=== PATIENT | female | born 1940 | race Caucasian/White ===

== ENCOUNTER 2018-02-12 23:44 | Inpatient (IN) | payer OTHER, MEDICAID, MEDICARE ==
[~2018-02-12] VITALS: Ht 170.2 cm; Wt 85.0 kg
[~2018-02-12 23:44] MED LIST: ANAS1 PO; COLA100C3 PO; DEXA0.5T PO; DEXA1TAB PO; DIAZ2TAB PO; ENOX30IN SQ; LEVO75TA3 PO; LOSA25TA PO; OMEP20TA93 PO; OXYC1TAB35 PO; SENN8.6C PO; TRAM50TA PO; VENL75TA PO
[2018-02-13] VITALS (10 sets, daily range): BP systolic 132–149; BP diastolic 66–85; PULSE 75–92; RESP 16–18; TEMP 97.5–98.6; O2SAT 94–97
[2018-02-13] MEDS ORDERED: SODIUM CHLORIDE 0.9% FLUSH 10 ML FLUSH IVF PRN (00:15)
[2018-02-13] MEDS ORDERED: PALB125C (00:23)
[2018-02-13 00:37] LABS: BASOPHIL % 0.5 % (0.0-2.0); EOSINOPHIL # 0.1 TH/MM3 (0-0.4); EOSINOPHIL % 2.1 % (0.0-4.0); HEMATOCRIT 39.2 % (35.0-46.0); HEMOGLOBIN 13.4 GM/DL (11.6-15.3); LYMPH % 43.1 % (9.0-44.0); LYMPHOCYTE # 1.8 TH/MM3 (1.0-4.8); MEAN CELL VOLUME 83.2 FL (80.0-100.0); MEAN CORPUSCULAR HEMOGLOBIN 28.5 PG (27.0-34.0); MEAN CORPUSCULAR HGB CONC 34.2 % (32.0-36.0); MONO % 4.2 % (0.0-8.0); MONOCYTE # 0.2 TH/MM3 (0-0.9); NEUT % 50.1 % (16.0-70.0); PLATELET COUNT 278 TH/MM3 (150-450); RED BLOOD COUNT 4.72 MIL/MM3 (4.00-5.30); RED CELL DISTRIBUTION WIDTH 15.7 % (11.6-17.2); WHITE BLOOD COUNT 4.1 TH/MM3 (4.0-11.0)
--- NOTE | 2018-02-13 00:49 | PD ---
HPI . Right leg weakness Chief Complaint: Neuro Symptoms/ Deficits Time Seen by Provider: 00:09 Travel History International Travel<30 days: No Contact w/Intl Traveler<30days: No Traveled to known affect area: No History of Present Illness HPI This patient presents with chief complaint of right leg weakness. Onset was about 5 or 530 this afternoon. The weakness has persisted causing her to present to the emergency department this evening. She denies headache. She does state that she had an aura. She has a history of migraines. She denies any difficulty with her vision. She denies any previous similar history. Symptoms are mild. PFSH Past Medical History Anxiety: Yes Depression: Yes Cancer: Yes (BREAST AND CERVICAL CA) Cardiovascular Problems: Yes High Cholesterol: Yes Chemotherapy: Yes Diminished Hearing: Yes Hypertension: Yes Immune Disorder: No Neurologic: Yes (PINCHED NERVE) Psychiatric: Yes (PTSD) Reproductive: Yes (LUMPECTOMY L BREAST) Immunizations Current: Yes Radiation Therapy: No Thyroid Disease: Yes Triglycerides - High: Yes Menopausal: Yes : 5 Para: 3 Miscarriage: 2 Ectopic : Yes Past Surgical History Abdominal Surgery: Yes (ABDOMINAL ABSCESS) Cardiac Surgery: No Ear Surgery: No Endocrine Surgery: No Eye Surgery: No Genitourinary Surgery: No Gynecologic Surgery: Yes (HYSTERECTOMY) Hysterectomy: Yes Mastectomy: No (LUMPECTOMY L BREAST) Thoracic Surgery: No Other Surgery: Yes Social History Alcohol Use: No Tobacco Use: No Substance Use: No Allergies-Medications (Allergen,Severity, Reaction): Coded Allergies: cortisone (Unverified Adverse Reaction, Severe, PSYCHOTIC, 02/13/18) Reported Meds & Prescriptions Reported Meds & Active Scripts Active Reported Ibrance (Palbociclib) 125 Mg Capsule Levothyroxine (Levothyroxine Sodium) 75 Mcg Tab 75 Mcg PO DAILY Effexor (Venlafaxine HCl) 75 Mg Tab 75 Mg PO Q12H Losartan (Losartan Potassium) 25 Mg Tab 25 Mg PO DAILY Review of Systems Except as stated in HPI: all other systems reviewed are Neg Physical Exam Narrative GENERAL: Healthy-appearing woman who is in no acute distress. SKIN: warm/dry. Normal color. HEAD: Normocephalic. Atraumatic. EYES: Pupils equal and round. No scleral icterus. No injection or drainage. ENT: No nasal bleeding or discharge. Mucous membranes pink and moist. NECK: Trachea midline. Full range of motion without pain.. CARDIOVASCULAR: Regular rate and rhythm. RESPIRATORY: No accessory muscle use. Clear to auscultation. Breath sounds equal bilaterally. GASTROINTESTINAL: Abdomen soft. Nontender. Bowel sounds present. Nondistended. MUSCULOSKELETAL: No obvious deformities. NEUROLOGICAL: Awake and alert. The patient is able to wrinkle her forehead, close her eyes, smile and protrude her tongue in the midline all without any lateralizing signs. Her muscular strength in her upper extremity seems to be full and equal but there is a subtle right pronator drift. She is able to lift the right leg off the bed and hold it for a period of time comparable to the strength in her left lower extremity. She does have weakness on dorsiflexion of the left foot and the left great toe. Plantar flexion is full and equal. PSYCHIATRIC: Appropriate mood and affect; insight and judgment normal. Data Data Last Documented VS Vital Signs Date Time Temp Pulse Resp B/P (MAP) Pulse Ox O2 Delivery O2 Flow Rate FiO2 02/13/18 00:15 96 Room Air 02/13/18 00:03 97.6 89 16 148/67 (94) Orders Orders Electrocardiogram (02/13/18 00:09) Prothrombin Time / Inr (Pt) (02/13/18:) Act Partial Throm Time (Ptt) (02/13/18:09) Complete Blood Count With Diff (02/13/18 00:09) Basic Metabolic Panel (Bmp) (02/13/18 00:09) Troponin I (02/13/18 00:09) Ct Brain W/O Iv Contrast(Rout) (02/13/18 00:09) Chest, Single Ap (02/13/18 00:09) Ecg Monitoring (02/13/18 00:09) Iv Access Insert/Monitor (02/13/18 00:09) Oximetry (02/13/18 00:09) Blood Glucose (02/13/18 00:09) Sodium Chloride 0.9% Flush (Ns Flush) (02/13/18 00:15) Place In Observation (02/13/18 ) Vital Signs (Adult) Q4H (02/13/18 02:19) Neuro Checks Q4H (02/13/18 02:19) Activity Bed Rest (02/13/18 02:19) Preschool Paraprofessional / Telemetry .CONTINUOUS (02/13/18 02:19) Diet Heart Healthy (02/13/18 Breakfast) Sodium Chloride 0.9% Flush (Ns Flush) (02/13/18 02:30) Sodium Chloride 0.9% Flush (Ns Flush) (02/13/18 09:00) Basic Metabolic Panel (Bmp) (02/14/18 06:00) Complete Blood Count With Diff (02/14/18 06:00) Case Management Consult (02/13/18 02:19) Naloxone Inj (Narcan Inj) (02/13/18 02:30) Echo 2d Comp With Doppler (02/13/18 ) Us Carotid Arteries Comp Bilat (02/13/18 ) Consult Neurology (02/13/18 ) Consult Pt Eval & Treat (02/13/18 02:21) Labs Laboratory Tests Test 02/13/18 00:25 White Blood Count 4.1 TH/MM3 Red Blood Count 4.72 MIL/MM3 Hemoglobin 13.4 GM/DL Hematocrit 39.2 % Mean Corpuscular Volume 83.2 FL Mean Corpuscular Hemoglobin 28.5 PG Mean Corpuscular Hemoglobin Concent 34.2 % Red Cell Distribution Width 15.7 % Platelet Count 278 TH/MM3 Mean Platelet Volume 8.0 FL Neutrophils (%) (Auto) 50.1 % Lymphocytes (%) (Auto) 43.1 % Monocytes (%) (Auto) 4.2 % Eosinophils (%) (Auto) 2.1 % Basophils (%) (Auto) 0.5 % Neutrophils # (Auto) 2.0 TH/MM3 Lymphocytes # (Auto) 1.8 TH/MM3 Monocytes # (Auto) 0.2 TH/MM3 Eosinophils # (Auto) 0.1 TH/MM3 Basophils # (Auto) 0.0 TH/MM3 CBC Comment DIFF FINAL Differential Comment Prothrombin Time 10.0 SEC Prothromb Time International Ratio 1.0 RATIO Activated Partial Thromboplast Time 26.8 SEC Blood Urea Nitrogen 23 MG/DL Creatinine 0.99 MG/DL Random Glucose 155 MG/DL Calcium Level 8.4 MG/DL Sodium Level 141 MEQ/L Potassium Level 3.6 MEQ/L Chloride Level 105 MEQ/L Carbon Dioxide Level 26.1 MEQ/L Anion Gap 10 MEQ/L Estimat Glomerular Filtration Rate 54 ML/MIN Troponin I LESS THAN 0.02 NG/ML MDM Medical Decision Making Medical Screen Exam Complete: Yes Emergency Medical Condition: Yes Interpretation(s) EKG shows a normal sinus rhythm with no ST segment elevation or depression. Differential Diagnosis Differential diagnosis includes but is not limited to TIA, CVA, brain tumor, migraine, anxiety Narrative Course This patient presents with strokelike symptoms which started 7+ hours prior to presentation. Stroke workup is in process. CBC & BMP Diagram 02/13/18 00:25 Calcium Level 8.4 L trop < 0.02 Coags are normal Last Impressions Head CT 02/13/188 Signed Impressions: Service Date/Time: Tuesday, February 13, 2018 00:58 - CONCLUSION: 1. Chronic small vessel ischemic changes again noted and mild atrophy. 2. No acute hemorrhage, mass or infarction. Bronson Stallings MD Chest X-Ray 02/13/188 Signed Impressions: Service Date/Time: Tuesday, February 13, 2018 00:31 - CONCLUSION: No acute disease. Bronson Stallings MD Physician Communication Physician Communication Dr. Serrano Diagnosis Primary Impression: Stroke Qualified Codes: I63.9 - Cerebral infarction, unspecified Admitting Information Admitting Physician Requests: Admit Condition: Stable July Tristan MD Feb 13, 2018 00:49
--- NOTE | 2018-02-13 00:52 | RADRPT ---
EXAM DATE/TIME: 02/13/2018 00:31 [facility] COMPARISON: CHEST SINGLE AP, August 16, 2016, 14:35. INDICATIONS : Weakness. Syncope. MEDICAL HISTORY : Cardiovascular disease. Spinal stenosis. SURGICAL HISTORY : CABG. Fusion, cervical. ENCOUNTER: Initial ACUITY: 1 day PAIN SCORE: 6/10 LOCATION: Bilateral chest FINDINGS: A single view of the chest demonstrates the lungs to be symmetrically aerated without evidence of mas s, infiltrate or effusion. The cardiomediastinal contours are unremarkable. Osseous structures are intact. The patient is again noted to be status post median sternotomy. Atherosclerotic changes are p resent in the aorta. There are multiple surgical clips in the left axilla. Postsurgical changes noted in lower cervical and upper thoracic spine with metal hardware in place. CONCLUSION: No acute disease. Bronson Stallings MD on February 13, 2018 at 0:49 Board Certified Radiologist. This report was verified electronically.
--- NOTE | 2018-02-13 01:09 | RADRPT ---
EXAM DATE/TIME: 02/13/2018 00:58 [facility] COMPARISON: CT BRAIN W/O CONTRAST, September 12, 2016, 14:11. INDICATIONS : Right side facial droop. RADIATION DOSE: 56.35 CTDIvol (mGy) MEDICAL HISTORY : Hypertension. Carcinoma, breast. SURGICAL HISTORY : None. ENCOUNTER: Initial ACUITY: 1 day PAIN SCALE: 0/10 LOCATION: cranial TECHNIQUE: Multiple contiguous axial images were obtained of the head. Using automated exposure control and adj ustment of the mA and/or kV according to patient size, radiation dose was kept as low as reasonably a chievable to obtain optimal diagnostic quality images. DICOM format image data is available electro nically for review and comparison. FINDINGS: CEREBRUM: The ventricles are normal for age. Stable patchy white matter lucencies are again noted greatest in the periventricular regions. No evidence of midline shift, mass lesion, hemorrhage or acute infarctio n. No extra-axial fluid collections are seen. POSTERIOR FOSSA: The cerebellum and brainstem are intact. The 4th ventricle is midline. The cerebellopontine angle i s unremarkable. EXTRACRANIAL: The visualized portion of the orbits is intact. SKULL: The calvaria is intact. No evidence of skull fracture. CONCLUSION: 1. Chronic small vessel ischemic changes again noted and mild atrophy. 2. No acute hemorrhage, mass or infarction. Bronson Stallings MD on February 13, 2018 at 1:06 Board Certified Radiologist. This report was verified electronically.
[2018-02-13 01:13] LABS: TROPONIN I LESS THAN 0.02 NG/ML (0.02-0.05)
[2018-02-13 01:16] LABS: BICARBONATE 26.1 MEQ/L (21.0-32.0); BLOOD UREA NITROGEN 23 MG/DL (7-18); CALCIUM 8.4 MG/DL (8.5-10.1); CHLORIDE 105 MEQ/L (98-107); CREATININE 0.99 MG/DL (0.50-1.00); GLOMERULAR FILTRATION RATE 54 ML/MIN (>89); GLUCOSE,RANDOM 155 MG/DL (74-106); SODIUM (NA) 141 MEQ/L (136-145)
[2018-02-13] MEDS ORDERED: NALOXONE HCL 0.4 MG/ML AMP IV PUSH PRN (02:30)
[2018-02-13] MEDS ORDERED: SODIUM CHLORIDE 0.9% FLUSH 10 ML FLUSH IV FLUSH PRN (02:30)
--- NOTE | 2018-02-13 05:52 | HHI.HP ---
HPI Service [facility] Primary Care Physician Nazario Siddiqui, Admission Diagnosis stroke Diagnoses: Travel History International Travel<30 Days: No Contact w/Intl Traveler <30 Da: No Traveled to Known Affected Are: No History of Present Illness History from patient, ER physician communication, and review of medical records. Patient reported that around 5 PM yesterday, she felt that her right foot was funny. She stated she was still able to walk but she felt the right foot was becoming weaker and weaker. She thought it was kind of flop down. She stated she then called 911 because it was not getting any better. Patient herself denies any other focal deficits. She denies any speech disturbance or facial weakness or facial droop. She reports that she has some sores in her mouth because of her chemotherapy medications and her speech may be different because of the sores. She also reports a cramping in the back of her neck which is somewhat chronic. Yesterday, patient also went to her oncologist office. She was given Faslodex shots there. She is on ibrance at home daily. Review of Systems Except as stated in HPI: all other systems reviewed are Neg Past Family Social History Past Medical History Stanley's thyroiditis- s/p treatment Hypothyroidism due to treatment breast cancer- 7 yrs ago, s/p lumpectomy, then was pill meds (she is not sure whether this was tamoxifen) Anxiety Breast Cancer (Left breast upper inner quadrant carcinoma status post lumpectomy and sentinel lymph node biopsy November 2012. 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 Estrogen receptor 100%, progesterone receptor 97%, HER2 negative; pathologic stage T2 N0 M0 or IIA. She declined radiation after the surgery. She was given Exemestane but she self-discontinued after about 1 year. She presented at the end of 2015 with metastatic disease in the thoracic spine and the lumbar spine, she had destruction of T1 with cord compression. She had decompressive surgery. Pathology showed well-differentiated adenocarcinoma, hormone receptor positive, HER2 negative. She started anastrozole. Completed XRT 12/2016) Cervical Cancer in-situ Fall risk level 1 - sensorium and coordination int Hypertension Hypothyroidism Preferred Language for Healthcare Information (Lao) Previous Radiation Therapy (Possible had 1 radiation tx for dandruff at age 15. [place] 2016) PTSD PAST SURGICAL HISTORY: Abdominal - Colonic abscess Cervical Cancer Surgery - 2007 Hysterectomy, Complete - Benign Lumpectomy - Left Breast Plastic surgery - Breast Implants and removal Bilateral T1 laminectomy and semi laminectomy for resection of epidural and paraspinous metastatic neoplasm. Bilateral C6-T2 posterior lateral fusion in 2015 C7 amd T1 anterior cervical corpectomies, resection of metastatic neoplasm spinal cord decompression in 2015 Colonoscopy in 2007 Past Surgical History lumpectomy Allergies: Coded Allergies: cortisone (Unverified Adverse Reaction, Severe, PSYCHOTIC, 02/13/18) Family History father- copd mother- colon cancer Social History no smoking/ no drugs/ no etoh lives by herself still driving Physical Exam Vital Signs Vital Signs Date Time Temp Pulse Resp B/P (MAP) Pulse Ox O2 Delivery O2 Flow Rate FiO2 02/13/18 05:03 75 16 138/75 (96) 97 Room Air 02/13/18 00:15 96 Room Air 02/13/18 00:03 97.6 89 16 148/67 (94) 96 Physical Exam GENERAL: This is a well-nourished, well-developed patient, in no apparent distress. SKIN: No rashes, ecchymoses or lesions. Cool and dry. HEAD: Atraumatic. Normocephalic. No temporal or scalp tenderness. EYES: Pupils equal round and reactive. Extraocular motions intact. No scleral icterus. No injection or drainage. ENT: Nose without bleeding, purulent drainage or septal hematoma. Throat without erythema, tonsillar hypertrophy or exudate. Uvula midline. Airway patent. NECK: Trachea midline. No JVD or lymphadenopathy. Supple, nontender, no meningeal signs. CARDIOVASCULAR: Regular rate and rhythm without murmurs, gallops, or rubs. RESPIRATORY: Clear to auscultation. Breath sounds equal bilaterally. No wheezes , rales, or rhonchi. GASTROINTESTINAL: Abdomen soft, non-tender, nondistended. No hepato-splenomegaly , or palpable masses. No guarding. MUSCULOSKELETAL: Extremities without clubbing, cyanosis, or edema. No joint tenderness, effusion, or edema noted. No calf tenderness. Negative Homans sign bilaterally. NEUROLOGICAL: Awake and alert. Cranial nerves II through XII intact. Motor and sensory grossly within normal limits. Five out of 5 muscle strength in all muscle groups. Normal speech. Laboratory Laboratory Tests Test 02/13/18 00:25 White Blood Count 4.1 Red Blood Count 4.72 Hemoglobin 13.4 Hematocrit 39.2 Mean Corpuscular Volume 83.2 Mean Corpuscular Hemoglobin 28.5 Mean Corpuscular Hemoglobin Concent 34.2 Red Cell Distribution Width 15.7 Platelet Count 278 Mean Platelet Volume 8.0 Neutrophils (%) (Auto) 50.1 Lymphocytes (%) (Auto) 43.1 Monocytes (%) (Auto) 4.2 Eosinophils (%) (Auto) 2.1 Basophils (%) (Auto) 0.5 Neutrophils # (Auto) 2.0 Lymphocytes # (Auto) 1.8 Monocytes # (Auto) 0.2 Eosinophils # (Auto) 0.1 Basophils # (Auto) 0.0 CBC Comment DIFF FINAL Differential Comment Prothrombin Time 10.0 Prothromb Time International Ratio 1.0 Activated Partial Thromboplast Time 26.8 Blood Urea Nitrogen 23 Creatinine 0.99 Random Glucose 155 Calcium Level 8.4 Sodium Level 141 Potassium Level 3.6 Chloride Level 105 Carbon Dioxide Level 26.1 Anion Gap 10 Estimat Glomerular Filtration Rate 54 Troponin I LESS THAN 0.02 Result Diagram: 02/13/18 0025 02/13/18 0025 Caprini VTE Risk Assessment Caprini VTE Risk Assessment: Mod/High Risk (score >= 2) Caprini Risk Assessment Model Point Value = 1 Point Value = 2 Point Value = 3 Point Value = 5 Age 41-60 Minor surgery BMI > 25 kg/m2 Swollen legs Varicose veins or History of unexplained or recurrent spontaneous Oral contraceptives or hormone replacement Sepsis (< 1 month) Serious lung disease, including pneumonia (< 1 month) Abnormal pulmonary function Acute myocardial infarction Congestive heart failure (< 1 month) History of inflammatory bowel disease Medical patient at bed rest Age 61-74 Arthroscopic surgery Major open surgery (> 45 min) Laparoscopic surgery (> 45 min) Malignancy Confined to bed (> 72 hours) Immobilizing plaster cast Central venous access Age >= 75 History of VTE Family history of VTE Factor V Leiden Prothrombin [id number] Lupus anticoagulant Anticardiolipin antibodies Elevated serum homocysteine Heparin-induced thrombocytopenia Other congenital or acquired thrombophilia Stroke (< 1 month) Elective arthroplasty Hip, pelvis, or leg fracture Acute spinal cord injury (< 1 month) Prophylaxis Regimen Total Risk Factor Score Risk Level Prophylaxis Regimen 0-1 Low Early ambulation 2 Moderate Order ONE of the following: *Sequential Compression Device (SCD) *Heparin 5000 units SQ BID 3-4 Higher Order ONE of the following medications: *Heparin 5000 units SQ TID *Enoxaparin/Lovenox 40 mg SQ daily (WT < 150 kg, CrCl > 30 mL/min) *Enoxaparin/Lovenox 30 mg SQ daily (WT < 150 kg, CrCl > 10-29 mL/min) *Enoxaparin/Lovenox 30 mg SQ BID (WT < 150 kg, CrCl > 30 mL/min) AND/OR *Sequential Compression Device (SCD) 5 or more Highest Order ONE of the following medications: *Heparin 5000 units SQ TID (Preferred with Epidurals) *Enoxaparin/Lovenox 40 mg SQ daily (WT < 150 kg, CrCl > 30 mL/min) *Enoxaparin/Lovenox 30 mg SQ daily (WT < 150 kg, CrCl > 10-29 mL/min) *Enoxaparin/Lovenox 30 mg SQ BID (WT < 150 kg, CrCl > 30 mL/min) AND *Sequential Compression Device (SCD) Assessment and Plan Assessment and Plan Impression: Possible TIA Possible medications related side effects Plan: Neurochecks every 4 hours. Permissive hypertension for now. Neurology was consulted. Would consult patient's oncologist to make sure that her symptoms are not Side effects of the medication related to get home. Echocardiogram. Carotid sono. Prophylaxis with Lovenox. Discussed Condition With Patient, ER physician, nursing staff Karissa Serrano MD Feb 13, 2018 05:52
[2018-02-13] MEDS: LEVOTHYROXINE SODIUM 75 MCG TAB PO SCH (07:04)
[2018-02-13] MEDS: SODIUM CHLORIDE 0.9% FLUSH 10 ML FLUSH IV FLUSH SCH ×2 (08:59→21:58)
--- NOTE | 2018-02-13 09:00 | MB ---
cc: Gabriel Cruz MD DATE: 02/13/2018 ATTENDING PHYSICIAN: Dr. Hinds. REASON FOR CONSULT: Oncology consulted to render an opinion regarding patient with metastatic breast cancer. Patient present to the hospital with right leg weakness. HISTORY OF PRESENT ILLNESS: The patient is a very pleasant 77-year-old female with a history of metastatic breast cancer who presented to the emergency room with a complaint of right leg weakness. I just saw her in clinic 2 days ago and she had a second dose of Faslodex injection. She has also been taking Ibrance for the last 2 weeks. She stated that around 5 o'clock yesterday evening, her right foot felt funny. She seems to have a foot drop. Her leg got weaker and she had to walk with a walker. Her symptoms did not improve. She called EMS and was brought in to the emergency room. CT of the head did not show any acute changes. There were chronic small vessel ischemic changes noted with mild atrophy. When I saw her this morning, her symptoms have improved, but her right foot still feels "a little funny". She has a chronic neck pain and low back ache, but no new back pain. She denies any visual changes. Denies any seizure activity. Denies any problem with speech. Denies any other weakness. She has no chest pressure or palpitation. Denied shortness of breath or cough. Denied any nausea, vomiting, diarrhea or abdominal pain. PAST MEDICAL HISTORY: 1. Metastatic breast cancer. 2. Cervical cancer in situ. 3. Hypertension. 4. Hypothyroidism. 5. 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 6. Anxiety. PAST SURGICAL HISTORY: 1. Abdominal colonic abscess drainage. 2. Cervical cancer in 2006. 3. Complete hysterectomy. 4. Left lumpectomy. 5. Breast plastic surgery with implant and subsequent removal. 6. T1 laminectomy for resection of epidural and paraspinous metastatic disease in 2016. 7. Colonoscopy. ALLERGIES: CORTISONE. FAMILY HISTORY: She has 2 daughters and a sisters all healthy. Her youngest daughter has some sort of cancer. SOCIAL HISTORY: She has never smoked. She drinks occasionally. CURRENT MEDICATIONS: Ibrance, losartan, Effexor, levothyroxine, Faslodex. REVIEW OF SYSTEMS: CONSTITUTIONAL: Negative. EYES: Negative. ENT: Negative. CARDIOVASCULAR: No chest pressure or palpitations. RESPIRATORY: Denies any shortness of breath or cough. GASTROINTESTINAL: No nausea, vomiting, diarrhea or abdominal pain. GENITOURINARY: No dysuria or hematuria. MUSCULOSKELETAL: As above. ENDOCRINE: Negative. DERMATOLOGY: Negative. RHEUMATOLOGIC: Negative. PSYCHIATRIC: A little anxious. NEUROLOGIC: As above. PHYSICAL EXAM: VITAL SIGNS: Temperature 97.6, blood pressure 144/85, O2 saturation 96% on room air. GENERAL: She is alert, oriented x 3 in no acute distress. HEENT: Atraumatic, normocephalic. Pupils are equal, round, and reactive to light. Extraocular muscles are intact. No scleral icterus. Oropharynx dry mucosa. No lesion, no thrush or mucositis. NECK: No thyromegaly. No palpable mass. LYMPHATICS: No palpable cervical, clavicular, axillary or inguinal lymph nodes. CARDIOVASCULAR: Regular S1, S2. No murmur. LUNGS: Clear to auscultation without wheezes or rhonchi. ABDOMEN: Soft, nontender. Cannot palpate the liver or spleen. EXTREMITIES: No cyanosis, no clubbing, no edema. BACK: No significant paravertebral tenderness. SKIN: No rash or petechiae. NEUROLOGIC: Right lower extremity only slightly weaker with dorsiflexion. LABORATORY DATA: WBC 4.1, hemoglobin 13.4, platelet count 278, creatinine 0.99. ASSESSMENT AND PLAN: 1. Metastatic breast cancer. She first presented with left breast cancer and had lumpectomy in 11/2012. The pathology showed a 2.7 cm invasive ductal carcinoma, hormone receptor positive, HER2 negative, stage T2N0M0. She declined radiation. She was given exemestane, but self-discontinued about a year later. She presented at the end of 2015 with metastatic disease in the thoracic spine with the tumor invading T1 causing cord compression. She had decompressive laminectomy followed by radiation. She was then started on anastrozole and had a good response until recently, a PET scan showed progression of disease with new hypermetabolic lesions in the left acetabulum and left sacral ala. There were no visceral metastases noted. There were also no significant spinal metastases noted. She started Faslodex and Ibrance 2 weeks ago. She now presents with right lower extremity weakness. I doubt that the weakness is due to the Ibrance or Faslodex. Given her history, we do have to rule out GRAPHICS PROGRAMMER or spinal metastasis. Recommend getting an MRI of the thoracic spine and lumbar spine, as well as the brain for further evaluation. She will hold the Ibrance for now. 2. Right lower extremity weakness. CT of the head did not show any acute changes or chronic ischemic changes noted. Her symptoms are a little better this morning. We will get MRI of the thoracic spine and lumbar spine, as well as brain MRI for further evaluation. She is also awaiting a neurology evaluation. 3. Bone metastasis with progression of disease as above. She has no new bone pain. 4. Arthritis. 5. Chronic joint ache. 6. Mucositis due to Ibrance. She can continue Magic mouthwash. We will hold her Ibrance while she is in the hospital. PLAN: 1. Arrange for MRI of the brain, thoracic spine, and lumbar spine. Await neurology evaluation. 2. Hold Ibrance. 3. Start Magic mouthwash. 4. She can be discharged from oncology standpoint once she is cleared by neurology. Thank you, Dr. Serrano, for asking me to see this patient. MD ALICIA Price/ROSA , 08:07 AM , 08:59 AM [facility]
[2018-02-13] MEDS: LOSARTAN 25 MG TAB PO SCH (09:17)
[2018-02-13] MEDS: NYSTAT/DIPHENHY/LIDO MOUTHWASH (Adult) 120ML SWISH-SWAL SCH ×4 (09:18→21:58)
[2018-02-13] MEDS: VENLAFAXINE HCL XR 75 MG CAP PO SCH (09:18)
--- NOTE | 2018-02-13 10:40 | RADRPT ---
EXAM DATE/TIME: 02/13/2018 08:52 [facility] COMPARISON: No previous studies available for comparison. INDICATIONS : Transischemic attack. MEDICAL HISTORY : Hypertension. Carcinoma, breast. Thyroid disease. Ectopic . SURGICAL HISTORY : Left breast lumpectomy. Abdominal abscess. Hysterectomy. ENCOUNTER: Initial ACUITY: 1 day PAIN SCORE: 0/10 LOCATION: Bilateral neck PEAK SYSTOLIC VELOCITIES (cm/sec): ICA/CCA RATIO: Right: 1.1 Left: 1.0 ICA: Right: 66 Left: 64 CCA: Right: 62 Left: 65 ECA: Right: 61 Left: 52 VERTEBRAL: Right: 26 antegrade Left: 41 antegrade Elevated flow velocities and ICA/CCA ratios have been found to correlate with increased degrees of vessel stenosis, calculated as percentage of diameter relative to a normal segment of distal ICA/CCA FINDINGS: RIGHT CAROTID: No significant stenosis is visualized. The waveforms are within normal limits. LEFT CAROTID: No significant stenosis is visualized. The waveforms are within normal limits. VERTEBRAL ARTERIES: Antegrade flow is seen in both vertebral arteries. MISCELLANEOUS: None. CONCLUSION: Negative for hemodynamically significant stenosis Nazario Marcano MD FACR on February 13, 2018 at 10:37 Board Certified Radiologist. This report was verified electronically.
[2018-02-13] MEDS ORDERED: GADODIAMIDE PF 287 MG/ML 20 ML VIAL (for RAD MRI) IVCONTRAST ONE (10:52)
--- NOTE | 2018-02-13 11:04 | RADRPT ---
EXAM DATE/TIME: 02/13/2018 10:00 [facility] COMPARISON: No previous studies available for comparison. INDICATIONS : Right leg weakness. MEDICAL HISTORY : Carcinoma, breast. Hypertension. Metastatic disease. SURGICAL HISTORY : Fusion, thoracic. Hysterectomy. lumpectomy, lt elbow ENCOUNTER: Subsequent ACUITY: 2 day PAIN SCORE: 0/10 LOCATION: cranial Please note a normal MRA of the brain does not entirely exclude the possibility of a small aneurysm, nor the possibility of distal intracranial vessel disease. TECHNIQUE: 3D time of flight MRA was performed. Source images, multiplanar STS MIP, and 3D volume MIP reconstru ctions were reviewed. FINDINGS: There is excellent visualization of the major intracranial arteries out to the second-order branch ve ssels. Diffuse pronounced atherosclerotic disease throughout the intracranial vessels. A high-grade s tenosis is seen involving the right vertebral artery near its confluence. Areas of significant stenos is are seen throughout the intercavernous ICAs bilaterally. A focal high-grade stenosis is seen invol ving the proximal left M1 segment. Multiple scattered areas of stenosis throughout the proximal M2 br anches bilaterally. There is no evidence for aneurysm or vascular malformation. CONCLUSION: 1. Diffuse atherosclerotic disease including areas of significant stenosis involving the right verteb ral artery, bilateral intercavernous ICAs, and left M1. 2. No aneurysms. Richard Monsalve Jr., MD on February 13, 2018 at 10:55 Board Certified Radiologist. This report was verified electronically.
--- NOTE | 2018-02-13 11:31 | RADRPT ---
EXAM DATE/TIME: 02/13/2018 10:00 [facility] COMPARISON: No previous studies available for comparison. INDICATIONS : Right leg weakness. CONTRAST: 17 cc Omniscan (gadodiamide) IV MEDICAL HISTORY : Hypertension. Carcinoma, breast. Metastatic disease. SURGICAL HISTORY : Hysterectomy. Fusion, thoracic. lumpectomy, lt elbow ENCOUNTER: Subsequent ACUITY: 2 day PAIN SCORE: 0/10 LOCATION: cranial TECHNIQUE: Multiplanar, multisequence MRI of the brain was performed both prior to and following the administrat ion of paramagnetic contrast. FINDINGS: Moderate periventricular white matter changes are noted in nonspecific fashion. Lacunar infarcts are seen in the vasoganglia bilaterally. Ventricle size is appropriate. There no extra-axial fluid col lections. There is no parenchymal hemorrhage. Small punctate areas restricted diffusion are seen in both occipital lobes bilaterally Midline structures are intact Following intravenous administration of gadolinium there is no abnormal contrast enhancement. The posterior fossa is unremarkable. CONCLUSION: Negative for metastatic disease Marked periventricular white matter changes 2 small foci of restricted diffusion occipital lobes and would represent an acute ischemic process. These measure less than 6 mm. Nazario Marcano MD FACR on February 13, 2018 at 11:25 Board Certified Radiologist. This report was verified electronically.
--- NOTE | 2018-02-13 11:48 | RADRPT ---
EXAM DATE/TIME: 02/13/2018 10:00 [facility] COMPARISON: MRI LUMBAR SPINE W & W/O CONTRAST, August 04, 2016, 11:18. INDICATIONS : Right leg weakness. CONTRAST: 17 cc Omniscan (gadodiamide) IV MEDICAL HISTORY : Hypertension. Carcinoma, breast. 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 SURGICAL HISTORY : Hysterectomy. Fusion, thoracic. lumpectomy, lt elbow ENCOUNTER: Subsequent ACUITY: 2 day PAIN SCORE: 0/10 LOCATION: back TECHNIQUE: Multiplanar multisequence MRI of the lumbar spine was performed with and without contrast. FINDINGS: The most caudal appearing lumbar vertebra is numbered as L5. VERTEBRAE: Homogeneous signal. Normal alignment. CONUS: Normal level and configuration. T12-L1: The thecal sac has a normal diameter. No evidence of disc bulge or protrusion. The neural foramina are patent bilaterally. L1-L2: Previously described metastatic disease is all been apparent on today's exam. L2-L3: Mild airspace ridging with minimal spinal stenosis. L3-L4: Generalized disc bulging with moderate degenerative changes. Metastatic disease of L4 result in appa rent. L4-L5: The thecal sac has a normal diameter. No evidence of disc bulge or protrusion. The neural foramina are patent bilaterally. L5-S1: The thecal sac has a normal diameter. No evidence of disc bulge or protrusion. The neural foramina are patent bilaterally. Retroperitoneum is unremarkable There is no abnormal contrast enhancement CONCLUSION: There is mild edematous disease in the lumbar spine. I don't see evidence for progression of known m etastatic disease. In fact the metastatic disease is all but inapparent on today's exam I don't see an etiology for the right leg weakness. Known metastatic disease to the cervical spine. MRI may be of benefit. Nazario Marcano MD FACR on February 13, 2018 at 11:41 Board Certified Radiologist. This report was verified electronically.
--- NOTE | 2018-02-13 11:51 | RADRPT ---
EXAM DATE/TIME: 02/13/2018 10:00 [facility] COMPARISON: SPINE CERVICAL LTD (AP&LAT), August 07, 2016, 14:16. MRI THORACIC SPINE W & W/O CONTRAST, 2015, 11:18. INDICATIONS : Right leg weakness. CONTRAST: 17 cc Omniscan (gadodiamide) IV MEDICAL HISTORY : Hypertension. Carcinoma, breast. Metastatic disease. raditation to Tspine last year SURGICAL HISTORY : Fusion, thoracic. Hysterectomy. lumpectomy, Lt elbow ENCOUNTER: Subsequent ACUITY: 2 day PAIN SCORE: 0/10 LOCATION: back TECHNIQUE: Multiplanar multisequence MRI of the thoracic spine was performed. FINDINGS: There is artifact in the upper thoracic spine from previous resection. There does not appear to be c ord impingement although artifact makes it difficult to exclude sites. There has been further collapse of the T6 vertebral body. There is minimal collapse of the T11 verte bral body. There is focal abnormal enhancement in the T9 vertebral body. There is no abnormal contrast enhancement CONCLUSION: Findings consistent with known metastatic disease and previous surgical repair in the upper thoracic and lower cervical spine. I don't see evidence for cord compression. There has been progression of the vertebral body collapse at T6. Nazario Marcano MD FACR on February 13, 2018 at 11:46 Board Certified Radiologist. This report was verified electronically.
[2018-02-13] MEDS ORDERED: ASPIRIN 325 MG TAB PO ONE (17:00)
--- NOTE | 2018-02-13 18:21 | HHI.PR ---
Addendum to Inpatient Note Addendum Reason: Additional Documentation Additional Information Pt seen and evaluated, denies any CP/SOB/N/V. Feels that her left leg feels weaker. No weakness in her arms or right leg. Saw neurologist. on exam: Left leg w 3-4/5 strength. sensation is intact. able to bent leg at the knee. Right leg 5/5 strength. 5/5 upper extremity strength Impression: CVA Possible medications related side effects Plan: Neurochecks every 4 hours. monitor BP's Neurology and oncology following. MRI and MRA reviewed: MRI showing showing 2 small foci in the occipital lobes which could represent acute ischemic process. MRA concerning for sig stenosis of right vert art. B intercavernous ICA's and left M1. Neurology started pt on ASA and has ordered MRI of the C-spine. Dr. Cruz did recommend holding pt's Ibrance Lumbar MRI shows no progression of metastatic disease and thoracic MRI showing known metastatic disease in the upper thoracic and lower cervical spines. no cord compression Echocardiogram ordered Carotid sono neg for stenosis Oncology has cleared pt for d/c but hold Ibrance. f/u w Dr. Cruz as an outpatient awaiting final recs from neuro Prophylaxis with Lovenox. Kayley Montes MD Feb 13, 2018 18:21
--- NOTE | 2018-02-13 19:41 | ECHRPT ---
Indication: TIA CONCLUSIONS The left ventricular systolic function is low normal with an estimated ejection fraction in the rang e of 50- 55%. Doppler parameters are consistent with impaired left ventricular relaxtion (grade 1 diastolic dysfun ction). There is trace tricuspid valve regurgitation. BP: / HR: Rhythm: MEASUREMENTS (Male / Female) Normal Values Technical Quality: 2D ECHO LV Diastolic Diameter PLAX 4.4 cm 4.2 - 5.9 / 3.9 - 5.3 cm LV Systolic Diameter PLAX 3.4 cm IVS Diastolic Thickness 1.1 cm 0.6 - 1.0 / 0.6 - 0.9 cm LVPW Diastolic Thickness 0.6 cm 0.6 - 1.0 / 0.6 - 0.9 cm LV Relative Wall Thickness 0.4 RV Internal Dim ED PLAX 2.1 cm LA Systolic Diameter LX 3.2 cm 3.0 - 4.0 / 2.7 - 3.8 cm M-MODE Aortic Root Diameter MM 3.2 cm AV Cusp Separation MM 1.9 cm DOPPLER Mitral E Point Velocity 75.0 cm/s Mitral A Point Velocity 90.3 cm/s Mitral E to A Ratio 0.8 TR Peak Velocity 162.0 cm/s TR Peak Gradient 10.5 mmHg FINDINGS LEFT VENTRICLE Normal left ventricular size. Wall thickness is normal. The left ventricular systolic function is low normal with an estimated ejection fraction in the rang e of 50- 55%. Doppler parameters are consistent with impaired left ventricular relaxtion (grade 1 diastolic dysfun ction). RIGHT VENTRICLE Normal right ventricular size and systolic function. LEFT ATRIUM The left atrial size is normal. RIGHT ATRIUM The right atrial size is normal. ATRIAL SEPTUM Normal atrial septal thickness AORTA The aortic root and proximal ascending aorta are normal in size on limited imaging. MITRAL VALVE Grossly normal mitral valve. No mitral valve stenosis or regurgitation. AORTIC VALVE Probable trileaflet aortic valve. No aortic valve stenosis or regurgitation. TRICUSPID VALVE Structurally normal tricuspid valve. No tricuspid valve stenosis. There is trace tricuspid valve regurgitation. PULMONARY VALVE The pulmonary valve is not well visualized. VESSELS The inferior vena cava is normal in size. PERICARDIUM No pericardial effusion. Carson Arora DO (Electronically Signed) Final Date:13 February 2018 19:40
--- NOTE | 2018-02-13 20:01 | EKG ---
Date Performed: 02/13/2018 Time Performed: 00:28:46 PTAGE: 77 years EKG: Sinus rhythm NONSPECIFIC T-WAVE ABNORMALITY Since previous tracing, no significant change noted BORDERLINE ECG PREVIOUS TRACING : 08/04/2016 13.30 DOCTOR: Isaac Hughes Interpretating Date/Time 02/13/2018 19:56:59
--- NOTE | 2018-02-13 20:05 | MB ---
cc: Rupesh Batista MD, Olimpio F MD DATE: 02/13/2018 HISTORY OF PRESENT ILLNESS: She is a 77 year old seen in neurological consultation in regard to right leg/foot numbness and weakness. She developed symptoms yesterday and the symptoms persist. No other obvious problems of an acute nature. She has a history of breast cancer with metastasis. She had cervical spine surgery last year, apparently in relationship to breast cancer, and she has done well but was left with some right upper extremity weakness. She follows with oncology and she also has a diagnosis of hypertension. It appears that she had T1 metastatic disease in 2016, that is when she had the resection and instrumentation. PHYSICAL EXAMINATION: She was alert, pleasant, cooperative and well oriented. Mentally she performed well on the bedside exam. Ocular movements were full as well as visual roper. No facial weakness. Speech appeared normal. She raised the arm and she does have some intrinsic right hand muscle weakness that appears to involve predominantly ulnar innervated muscles. In the lower extremities, she was able to raise either lower extremity and there is a dorsiflexion foot weakness on the right. There was probably diffuse right lower extremity weakness, though mild. The reflexes showed slightly brisker right knee in comparison to the left knee. Ankles were trace questionably more obviously seen on the right than left, and plantar responses were flexor. IMPRESSION: 1. Right lower extremity numbness/weakness. 2. Metastatic breast cancer, previous metastasis to thoracic spine 1 treated with surgery. She follows with chemotherapy and through Oncology. Current symptoms are probably related to the MRI findings of small bilateral occipital infarct and, on my view, this is probably extending to the parietal lobe where it could be causing the symptoms. I am not seeing any visual field complaints or findings on the exam to correlate with the occipital lobe areas of diffusion abnormality. We will need to look for an embolic source, which might be just related to the underlying cancer predisposing to marantic embolism. The electrocardiogram showed sinus rhythm. She had a number of studies that were reviewed including MRI of thoracic and lumbar spine, as well as brain. Head MRA negative and carotid ultrasound was unremarkable. I am going to order an MRI cervical spine for completeness. The thoracic spine provides some limited views of the cervical spine and there is artifact from the prior surgery. Thank you for asking us to assist in her care. MD CHUCKIE Francois//rh , 04:54 PM , 05:35 PM
--- NOTE | 2018-02-13 22:24 | RADRPT ---
EXAM DATE/TIME: 02/13/2018 20:49 [facility] COMPARISON: No previous studies available for comparison. INDICATIONS : Increasing rigth leg weakness. MEDICAL HISTORY : Carcinoma, breast. Hypertension. radiation to T spine last year SURGICAL HISTORY : Fusion, thoracic. Hysterectomy. Lt elbow, lumpectomy ENCOUNTER: Subsequent ACUITY: 2 day PAIN SCORE: 0/10 LOCATION: neck TECHNIQUE: Multiplanar, multisequence MRI examination of the cervical spine was performed. FINDINGS: At C2-3-4-5 there is no significant abnormality At C5-6 there is posterior disc osteophyte complex effacing the thecal sac with mild flattening of th e cord. Mild foraminal encroachment. At C6-7 there is no significant stenosis. At C7-T1 is previous fusion with residual anterolisthesis at the cervicothoracic junction. Previous c ompression deformity T1. CONCLUSION: 1. Previous fusion across cervicothoracic junction with some residual anterolisthesis and kyphosis. 2. Posterior disc osteophyte complex at C5-6 resulting in mild AP canal stenosis and minimal flatteni ng of the cord. Tirso Kelly MD on February 13, 2018 at 22:17 Board Certified Radiologist. This report was verified electronically.
[2018-02-14] VITALS (7 sets, daily range): BP systolic 132–150; BP diastolic 68–75; PULSE 72–81; RESP 16–18; TEMP 97.4–98.7; O2SAT 95–96
[2018-02-14] MEDS: LEVOTHYROXINE SODIUM 75 MCG TAB PO SCH (05:53)
[2018-02-14] MEDS: LOSARTAN 25 MG TAB PO SCH (08:41)
[2018-02-14] MEDS: SODIUM CHLORIDE 0.9% FLUSH 10 ML FLUSH IV FLUSH SCH (08:41)
[2018-02-14] MEDS: VENLAFAXINE HCL XR 75 MG CAP PO SCH (08:42)
[2018-02-14] MEDS: NYSTAT/DIPHENHY/LIDO MOUTHWASH (Adult) 120ML SWISH-SWAL SCH ×3 (08:42→18:24)
[2018-02-14] MEDS ORDERED: ASPIRIN 81 MG CHEW TAB CHEW SCH (09:00)
[2018-02-14 11:00] LABS: AUTOMATED NEUTROPHIL # 1.9 TH/MM3 (1.8-7.7); BASOPHIL % 0.5 % (0.0-2.0); EOSINOPHIL # 0.1 TH/MM3 (0-0.4); EOSINOPHIL % 2.1 % (0.0-4.0); HEMATOCRIT 38.7 % (35.0-46.0); HEMOGLOBIN 12.8 GM/DL (11.6-15.3); LYMPH % 34.8 % (9.0-44.0); LYMPHOCYTE # 1.1 TH/MM3 (1.0-4.8); MEAN CELL VOLUME 86.3 FL (80.0-100.0); MEAN CORPUSCULAR HEMOGLOBIN 28.5 PG (27.0-34.0); MEAN PLATELET VOLUME 7.7 FL (7.0-11.0); MONO % 3.1 % (0.0-8.0); MONOCYTE # 0.1 TH/MM3 (0-0.9); NEUT % 59.5 % (16.0-70.0); PLATELET COUNT 208 TH/MM3 (150-450); RED BLOOD COUNT 4.48 MIL/MM3 (4.00-5.30); RED CELL DISTRIBUTION WIDTH 15.7 % (11.6-17.2); WHITE BLOOD COUNT 3.2 TH/MM3 (4.0-11.0)
[2018-02-14 11:20] LABS: BICARBONATE 29.4 MEQ/L (21.0-32.0); CALCIUM 8.4 MG/DL (8.5-10.1); CREATININE 0.79 MG/DL (0.50-1.00)
--- NOTE | 2018-02-14 15:43 | HHI.PR ---
Subjective Remarks Pt tells me that she has trouble w dorsiflex at the ankle on the right. would like to go home. Denies any CP/SOB/N/V Objective Vitals Vital Signs Date Time Temp Pulse Resp B/P (MAP) Pulse Ox O2 Delivery O2 Flow Rate FiO2 02/14/18 11:57 97.8 81 18 142/68 (92) 96 02/14/18 08:29 97.4 77 16 144/69 (94) 96 02/14/18 04:07 73 02/14/18 03:26 98.2 72 17 132/68 (89) 95 02/14/18 00:13 74 02/13/18 23:16 98.1 76 18 141/73 (95) 96 02/13/18 20:16 86 02/13/18 17:15 98.6 88 18 135/74 (94) 94 Result Diagram: 02/14/18 1000 02/14/18 1000 Imaging Last Impressions Head CT 02/13/18 0009 Signed Impressions: Service Date/Time: Tuesday, February 13, 2018 00:58 - CONCLUSION: 1. Chronic small vessel ischemic changes again noted and mild atrophy. 2. No acute hemorrhage, mass or infarction. Bronson Stallings MD Chest X-Ray 02/13/18 0009 Signed Impressions: Service Date/Time: Tuesday, February 13, 2018 00:31 - CONCLUSION: No acute disease. Bronson Stallings MD Thoracic Spine MRI 02/13/18 0000 Signed Impressions: Service Date/Time: Tuesday, February 13, 2018 10:00 - CONCLUSION: Findings consistent with known metastatic disease and previous surgical repair in the upper thoracic and lower cervical spine. I don't see evidence for cord compression. There has been progression of the vertebral body collapse at T6. Nazario Marcano MD FACR Lumbar Spine MRI 02/13/18 0000 Signed Impressions: Service Date/Time: Tuesday, February 13, 2018 10:00 - CONCLUSION: There is mild edematous disease in the lumbar spine. I don't see evidence for progression of known metastatic disease. In fact the metastatic disease is all but inapparent on today's exam I don't see an etiology for the right leg weakness. Known metastatic disease to the cervical spine. MRI may be of benefit. Nazario Marcano MD FACR Head Magnetic Resonance Angiography 02/13/18 Signed Impressions: Service Date/Time: Tuesday, February 13, 2018 10:00 - CONCLUSION: 1. Diffuse atherosclerotic disease including areas of significant stenosis involving the right vertebral artery, bilateral intercavernous ICAs, and left M1. 2. No aneurysms. Richard Monsalve Jr., MD Cervical Spine MRI 02/13/18 Signed Impressions: Service Date/Time: Tuesday, February 13, 2018 20:49 - CONCLUSION: 1. Previous fusion across cervicothoracic junction with some residual anterolisthesis and kyphosis. 2. Posterior disc osteophyte complex at C5-6 resulting in mild AP canal stenosis and minimal flattening of the cord. Tirso Kelly MD Carotid Artery Ultrasound 02/13/18 Signed Impressions: Service Date/Time: Tuesday, February 13, 2018 08:52 - CONCLUSION: Negative for hemodynamically significant stenosis Nazario Marcano MD FACR Brain MRI 02/13/18 Signed Impressions: Service Date/Time: Tuesday, February 13, 2018 10:00 - CONCLUSION: Negative for metastatic disease Marked periventricular white matter changes 2 small foci of restricted diffusion occipital lobes and would represent an acute ischemic process. These measure less than 6 mm. Nazario Marcano MD FACR Objective Remarks GENERAL: pleasant, laying in bed EYES: Extraocular motions intact. ENT: Nose without drainage. Airway patent. NECK: Trachea midline. CARDIOVASCULAR: Regular rate and rhythm without murmurs RESPIRATORY: Clear to auscultation. Breath sounds equal bilaterally. No wheezes GASTROINTESTINAL: Abdomen soft, non-tender, nondistended. No guarding. MUSCULOSKELETAL: Extremities without edema. right dorsiflexion 2-3/5 noted ( right ankle). right lower ext weakness about 3-4/5 (slightly better compared to yesterday). Left lower ext 5/5. Upper ext 5/5. NEUROLOGICAL: Awake and alert. Normal speech. CN grossly intact A/P Assessment and Plan Pt admitted for CVA. MRI and MRA reviewed: MRI showing showing 2 small foci in the occipital lobes which could represent acute ischemic process. MRA concerning for sig stenosis of right vert art. B intercavernous ICA's and left M1. Neurology started pt on ASA and has ordered MRI of the C-spine. Discussed w Dr. Batista, and recommends adding plavix as well. ECHO w EF of 50-55%, grade 1 diastolic dysfunction. Pt has been cleared by neuro for discharge. continue heart healthy diet and good BP control. Carotid sono neg for stenosis Breast Ca Dr. Cruz did recommend holding pt's Ibrance Lumbar MRI shows no progression of metastatic disease and thoracic MRI showing known metastatic disease in the upper thoracic and lower cervical spines. no cord compression Oncology has cleared pt for d/c but hold Ibrance. f/u w Dr. Cruz as an outpatient Discharge Planning ok to d/c pt f/u w neuro and onc as an outpatient scripts in chart heart healthy diet condition; Kayley Barros MD Feb 14, 2018 15:43
[2018-02-14] MEDS ORDERED: CLOPIDOGREL 75 MG TAB PO ONE (15:45)
[2018-02-14] MEDS ORDERED: ASPI81 CHEW (15:47)
[2018-02-14] MEDS ORDERED: PLAV75TA29 PO (15:47)
--- NOTE | 2018-02-14 16:14 | HHI.FF ---
Face to Face Verification Diagnosis: (1) Metastatic disease (2) Stroke Physical Therapy Order: Evaluate and Treat Home Health Nursing Order: Nursing assessment with vital signs I have seen patient Edie Pichardo on 02/14/18. My clinical findings support the need for the requested home health care services because: PT evaluated the pt and recommended home health PT. Pt also will need referral to [facility] to eval for custom right AFO. Deconditioned w/ increased weakness High risk of falls I certify that my clinical findings support that this patient is homebound because: PT evaluated the pt and recommended home health PT. Pt also will need referral to [facility] to eval for custom right AFO. Unsteady gait/balance Kayley Montes MD Feb 14, 2018 16:14
--- NOTE | 2018-02-14 18:25 | PD.ONC.PN ---
Subjective Subjective Remarks Afebrile Patient still having right foot weakness States she feels like she has to drag it when she walks Otherwise denies pain and has no other acute complaints Objective Data Date Time Temp Pulse Resp B/P (MAP) Pulse Ox O2 Delivery O2 Flow Rate FiO2 02/14/18 16:20 98.7 80 18 150/75 (100) 95 02/14/18 11:57 97.8 81 18 142/68 (92) 96 02/14/18 08:29 97.4 77 16 144/69 (94) 96 02/14/18 04:07 73 02/14/18 03:26 98.2 72 17 132/68 (89) 95 02/14/18 00:13 74 02/13/18 23:16 98.1 76 18 141/73 (95) 96 02/13/18 20:16 86 Result Diagram: 02/14/18 1000 02/14/18 1000 Laboratory Results Laboratory Tests Test 02/14/18 10:00 White Blood Count 3.2 TH/MM3 Red Blood Count 4.48 MIL/MM3 Hemoglobin 12.8 GM/DL Hematocrit 38.7 % Mean Corpuscular Volume 86.3 FL Mean Corpuscular Hemoglobin 28.5 PG Mean Corpuscular Hemoglobin Concent 33.0 % Red Cell Distribution Width 15.7 % Platelet Count 208 TH/MM3 Mean Platelet Volume 7.7 FL Neutrophils (%) (Auto) 59.5 % Lymphocytes (%) (Auto) 34.8 % Monocytes (%) (Auto) 3.1 % Eosinophils (%) (Auto) 2.1 % Basophils (%) (Auto) 0.5 % Neutrophils # (Auto) 1.9 TH/MM3 Lymphocytes # (Auto) 1.1 TH/MM3 Monocytes # (Auto) 0.1 TH/MM3 Eosinophils # (Auto) 0.1 TH/MM3 Basophils # (Auto) 0.0 TH/MM3 CBC Comment DIFF FINAL Differential Comment Blood Urea Nitrogen 16 MG/DL Creatinine 0.79 MG/DL Random Glucose 127 MG/DL Calcium Level 8.4 MG/DL Sodium Level 143 MEQ/L Potassium Level 3.5 MEQ/L Chloride Level 107 MEQ/L Carbon Dioxide Level 29.4 MEQ/L Anion Gap 7 MEQ/L Estimat Glomerular Filtration Rate 70 ML/MIN Administered Medications Medications (Trade) Dose Ordered Sig/Hadley Route PRN Reason Start Time Stop Time Status Last Admin Dose Admin Sodium Chloride (NS Flush) 2 ml BID IV FLUSH 02/13/18 09:00 02/14/18 08:41 Levothyroxine Sodium (Synthroid) 75 mcg DAILY@0600 PO 02/13/18 06:10 02/14/18 05:53 Losartan Potassium (Cozaar) 25 mg DAILY PO 02/13/18 09:00 02/14/18 08:41 Venlafaxine HCl (Effexor Xr) 150 mg DAILY PO 02/13/18 09:00 02/14/18 08:42 Multi-Ingredient Mouthwash/Gargle (Magic Mouthwash Adult Liq) 10 ml QID SWISH-SWAL 02/13/18 09:00 02/14/18 13:28 Aspirin (Aspirin Chew) 81 mg DAILY CHEW 02/14/18 09:00 02/14/18 08:41 Objective Remarks GENERAL: Pleasant older female resting in bed in no obvious distress SKIN: Warm and dry. HEAD: Normocephalic. EYES: No injection or drainage. NECK: Supple, trachea midline. CARDIOVASCULAR: Regular rate and rhythm without murmurs. RESPIRATORY: Breath sounds equal bilaterally. No accessory muscle use. GASTROINTESTINAL: Abdomen soft, non-tender, nondistended. EXTREMITIES: No cyanosis, or edema. MUSCULOSKELETAL: Adequate muscle tone. NEUROLOGICAL: Right lower extremity weakness. Normal speech. Assessment/Plan Problem List: (1) Breast cancer ICD Codes: C50.919 - Malignant neoplasm of unspecified site of unspecified female breast Status: Chronic Plan: --MRI of the brain shows no metastatic disease --MRI of the thoracic lumbar and cervical spine show no worsening metastatic disease Hx/Workup: The patient originally presented with left breast cancer in 2012. She declined adjuvant radiation at that time. She was given exemestane but self discontinued a proximally 1 year into treatment. 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 She had decompressive laminectomy followed by radiation. She was then started on anastrozole with good response. Most recently a PET scan showed progression of disease with new hypermetabolic lesions in the left acetabulum and left sacral ala. The patient was started on Faslodex and Ibrance 2 weeks ago (2) Stroke ICD Codes: I63.9 - Cerebral infarction, unspecified Status: Acute Plan: --Neurology following --Concern for small bilateral occipital infarct Assessment 77-year-old female with history of metastatic breast cancer admitted for right leg weakness Plan 1. Hold Ibrance until follow-up with Dr. Yeh outpatient 2. Supportive care 3. Monitor occasional CBC Attending Statement The exam, history, and the medical decision-making described in the above note were completed with the assistance of the mid-level provider. I reviewed and agree with the findings presented. I attest that I had a [id number] encounter with the patient on the same day, and personally performed and documented my assessment and findings in the medical record. 77 yoF with metastatic breast cancer currently on fulvestrant and palbociblib under the direction of my colleague Dr. Yeh. She presented to the ED with right foot weakness. She has been evaluated by neurology. Work up including MRI brain, MRI cervical spine, echocardiogram, ECG, cartotid ultrasound revealed areas concerning for occipital infarction. She is on aspirin and plavix. She will hold Ibrance in the outpatient setting and have close follow up with Dr. yeh. Problem Qualifiers (1) Stroke: Qualified Codes: I63.9 - Cerebral infarction, unspecified Archana Carrington Feb 14, 2018 18:25 Sonia Orozco MD Feb 14, 2018 18:36
[2018-02-15] MEDS ORDERED: CLOPIDOGREL 75 MG TAB PO SCH (09:00)
== END 2018-02-14 20:52 | disposition home health service (06) | DRG 65 ==
LOC: NEPE 23:44 → NEDA 02-13 02:35 → NEDH 02-13 06:29 → NEPFCDU 02-13 11:40 → OBSVTOIN 02-13 18:43
PROVIDERS: ADMIT Hospitalist; ATTEND Hospitalist
DX: I63.8 Other cerebral infarction (principal); C79.51 Secondary malignant neoplasm of bone; I10 Essential (primary) hypertension; F41.9 Anxiety disorder, unspecified; E89.0 Postprocedural hypothyroidism; K12.31 Oral mucositis (ulcerative) due to antineoplastic therapy; T45.1X5A Adverse effect of antineoplastic and immunosuppressive drugs, initial encounter; M21.379 Foot drop, unspecified foot; G83.11 Monoplegia of lower limb affecting right dominant side; M54.2 Cervicalgia; M54.5 Low back pain; G89.29 Other chronic pain; M19.90 Unspecified osteoarthritis, unspecified site; H91.90 Unspecified hearing loss, unspecified ear; F43.10 Post-traumatic stress disorder, unspecified; Z80.0 Family history of malignant neoplasm of digestive organs; Z85.3 Personal history of malignant neoplasm of breast; Z85.41 Personal history of malignant neoplasm of cervix uteri; Z92.21 Personal history of antineoplastic chemotherapy; Z92.3 Personal history of irradiation; Z98.1 Arthrodesis status
CPT/HCPCS: 70450; 70544; 70553; 71045; 72141; 72157; 72158; 80048; 84484; 85025; 85610; 85730; 93005; 93306; 93880; A9579; G8987-GP; G8988-GP